=== PATIENT | female | born 1955 | race Caucasian/White ===

== ENCOUNTER 2016-07-21 13:36 | Emergency (ER) | payer OTHER ==
[~2016-07-21] VITALS: Ht 152.4 cm; Wt 90.7 kg
[~2016-07-21 13:36] MED LIST: ATORVASTATIN CA10 MG PO; CITALOPRAM20 MG PO; DELTASONE20 MG PO; FENOFIBRATE MI134 MG PO; LEVOTHYROXINE0.1 MG PO; MEDROL DOSEPAK1 PAC PO; PERCOCET 325 MG1 TA2 PO; TENORETIC PO
--- NOTE | 2016-07-21 15:36 | ED EYE COMPLAINT ---
History of Present Illness General Chief Complaint: Eye Problems Stated Complaint: BILATERAL EYE SWELLING,ITCHINESS,BLISTERS Source: patient Exam Limitations: no limitations Vital Signs & Intake/Output Vital Signs & Intake/Output Vital Signs Date Time Temp Pulse Resp B/P Pulse O2 O2 Flow FiO2 Ox Delivery Rate 07/21 1345 98.3 68 16 132/92 94 Room Air Allergies Coded Allergies: celecoxib (From CELEBREX) (Intermediate, ARM SWELLING 05/20/16) Reconcile Medications Atorvastatin Calcium (Lipitor) 10 MG TAB 1 TAB PO DAILY CHOLESTEROL (Reported ) Cephalexin (Keflex) 500 MG CAPSULE 1 CAP PO TID periorbital cellulitis Citalopram Hydrobromide (Citalopram HBr) 20 MG TAB 1 TAB PO DAILY DEPRESSION (Reported) Fenofibrate, Micronized (Fenofibrate Micronized) 134 MG CAP 1 TAB PO D CHOL ( Reported) Levothyroxine Sodium 0.1 MG TAB 0.1 MG PO DAILY AC THYROID (Reported) Prednisone (Deltasone) 20 MG TABLET 1 TAB PO BID ALLERGIC REACTION Sulfamethoxazole/Trimethoprim (Bactrim Ds Tablet) 800 MG-160 MG TABLET 1 TAB PO BID periorbital cellulitis Tenoretic (Tenoretic 100 Tablet) 1 TAB TAB 1 TAB PO DAILY HTN (Reported) Triage Note: PT STATES SHE IS HAVING SWELLING,REDNESS AND DRAINAGE TO BILAT EYES SINCE TUESDAY. PT STATES THIS HAPPENS TO HER TWO TIMES A YEAR ONCE IN SUMMER AND ONCE IN THE WINTER. Triage Nurses Notes Reviewed? yes HPI: This patient is a 60-year-old female who presented to the emergency department stay for bilateral eye complaint. Patient reported that her symptoms began on Tuesday with itching to her eyes. She reported that her eyes have been feeling swollen and she has, "a funny sensation," underneath her eyes. She reported that similar symptoms do happen to her in the winter. She reported that she has been on prednisone in the past. The patient denied any fevers, chills, visual changes coming ear pain, throat pain, difficulty breathing, tongue swelling or lip swelling, chest pain, or abdominal pain. (GABO SHUKLA,ARTEM) Past History Travel History Traveled to [place] past 21 day No Medical History Any Pertinent Medical History? 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 No (ARTEM AYON PA-C) Review of Systems Review of Systems Constitutional: Reports: no symptoms. Eyes: Reports: see HPI. Ear: Reports: no symptoms. Nose: Reports: no symptoms. Mouth: Reports: no symptoms. Throat: Reports: no symptoms. Respiratory: Reports: no symptoms. Cardiovascular: Reports: no symptoms. GI: Reports: no symptoms. Musculoskeletal: Reports: no symptoms. Skin: Reports: no symptoms. Neurological/Psychological: Reports: no symptoms. All Other Systems: Reviewed and Negative (ARTEM AYON PA-C) Physical Exam General Appearance: well developed/nourished, no apparent distress, alert, awake General Inspection: PERIORBITAL ERYTHEMA AND EDEMA. nO PROPTOSIS. nO DRAINAGE FROM THE EYE. nO CONJUNCTIVAL INJECTION. eomi. perrla. nO EVIDENCE OF FOREIGN BODY General Inspection: POSITIVE PERIORBITAL ERYTHEMA AND EDEMA. nO PROPTOSIS. nO DRAINAGE FROM THE EYE. nO CONJUNCTIVAL INJECTION. perrla. eomi. nO EVIDENCE OF FOREIGN BODY Physical Exam Comments: Well-developed well-nourished person in no acute distress HEENT: Normal EENT exam, head normocephalic, moist mucous membranes No pharyngeal injection. No oropharyngeal edema. No tongue or lip swelling Neck: Supple, no lymphadenopathy Back: Normal gait Cardiovascular: Regular rate and rhythm no murmurs Respiratory: Lungs clear to auscultation bilaterally with no wheezes, rales, or rhonchi Extremity: Normal and equal pulses Neuro: Alert oriented x3, cranial nerves II through XII grossly intact. Skin: No appreciable rash on exposed skin, skin is warm and dry. Psych: Mood and affect is normal (ARTEM AYON PA-C) Progress Differential Diagnosis: corneal abrasion, corneal foreign body, conjunctivitis, detached retina, glaucoma, globe rupture, retinal art./v. occlusion, PERIORBITAL CELLULITIS, ORBITAL CELLULITIS Plan of Care: Orders Procedure Date/time Status BLOOD CULTURE 07/21 1529 Active COMPREHENSIVE METABOLIC PANEL 07/21 1529 Complete CBC WITHOUT DIFFERENTIAL 01/18 1529 Complete Laboratory Tests 07/21/16 1544: Anion Gap 10, Estimated GFR > 60, BUN/Creatinine Ratio 30.0 H, Glucose 116 H, Calcium 10.4 H, Total Bilirubin 0.5, AST 73 H, ALT 93 H, Alkaline Phosphatase 68, Total Protein 7.3, Albumin 4.2, Globulin 3.1, Albumin/Globulin Ratio 1.4, CBC w Diff NO MAN DIFF REQ, RBC 4.09 L, MCV 94.4, MCH 32.0 H, RDW 16.1 H, MPV 8.4, Gran % 55.6, Lymphocytes % 32.4, Monocytes % 7.3, Eosinophils % 4.5, Basophils % 0.2, Absolute Granulocytes 3.1, Absolute Lymphocytes 1.8, Absolute Monocytes 0.4, Absolute Eosinophils 0.2, Absolute Basophils 0, PUBS MCHC 33.8 Microbiology 07/21 1555 BLOOD: Blood Culture - RECD 07/21 154 BLOOD: Blood Culture - RECD Diagnostic Imaging: Viewed by Me: CT Scan. Discussed w/RAD: CT Scan. Radiology Impression: PATIENT: MIKE ACOSTA PRESENT AGE: 60 PATIENT ACCOUNT NO: [id number] : 54 LOCATION: [facility] ORDERING PHYSICIAN: ARTEM AYON PA-C SERVICE DATE: 07/21/16 EXAM TYPE: CAT - CT ORBITS W IV CONTRAST EXAMINATION: CT ORBIT WITH CONTRAST CLINICAL INFORMATION: 60-year-old female with periorbital edema and erythema. Evaluate for orbital cellulitis. COMPARISON: None. TECHNIQUE: Multidetector CT imaging of the orbits was performed with intravenous administration of 95 mL of Optiray 320 nonionic contrast material. Axial images are presented at 1.25 mm and 2.5 mm slice thickness. Coronal and sagittal reformatted images were generated and reviewed. DLP: 179 mGy-cm. FINDINGS: There is mild edema within subcutaneous tissues in the right periorbital area without evidence of post septal extension of inflammation or rim-enhancing abscess. The globes, extraocular muscles, optic nerves and optic canals are normal. The retrobulbar fat planes are well- preserved. The orbital rims and daily, including lamina papyracea, are intact. The visualized paranasal sinuses are well-pneumatized and without air-fluid levels. The nasopharynx and nasal cavity are well aerated. Incidentally noted is right-sided deviation of the nasal septum with a right-sided spur that encroaches on the middle meatus. The visualized mandible, temporomandibular joints, zygomatic arches, nasal bones and pterygoid plates are intact. No acute findings within the examined intracranial compartment. There is mild atherosclerosis of the cavernous carotid arteries. The mastoid air cells and middle ear cavities are clear. IMPRESSION: Mild soft tissue inflammation/ cellulitis in the right periorbital region. No evidence of postseptal extension of inflammation, soft tissue abscess or sinusitis. DICTATED BY: BHARAT HAILE MD DATE/TIME DICTATED:07/21/161646 WRAPPER STEMMER HAND:IVETTE DATE/TIME TRANSCRIBED:07/21/161646 CONFIDENTIAL, DO NOT COPY WITHOUT APPROPRIATE AUTHORIZATION. <Electronically signed in Other Vendor System> SIGNED BY: BHARAT HAILE MD 07/21/161656 Comments: 07/21/2016 5:21:34 PM: Discussed this patient's imaging and laboratory studies. No increased blood cell count. However there is a periorbital right-sided cellulitis seen. The patient is currently denying any pain to her eyes. DR MELISSA that the patient's bedside [id number] evaluation. We'll give this patient and dose of antibiotics here in the emergency department through the IV. She will go home with PO antibiotics and return tomorrow evening for a recheck. The patient is in agreement with the plan. (ARTEM AYON PA-C) Departure Departure Disposition: HOME OR SELF CARE Condition: Stable Clinical Impression Primary Impression: Periorbital cellulitis Qualifiers: Laterality: right Qualified Code: L03.213 - Periorbital cellulitis Referrals: CECILIA COATES APRN (PCP/Family) Additional Instructions: Please take antibiotics as prescribed and for their full duration. Please return to the emergency department tomorrow evening for a reevaluation. Be sure to rest and stay hydrated. Call your primary care physician to schedule a follow-up appointment. Return to the emergency department sooner for any worsening symptoms or concerns. Departure Forms: Customer Survey General Discharge Information Prescriptions: Current Visit Scripts Cephalexin (Keflex) 1 CAP PO TID #30 CAP Sulfamethoxazole/Trimethoprim (Bactrim Ds Tablet) 1 TAB PO BID #20 TAB (ARTEM AYON PA-C) PA/HOSIERY MATER Co-Sign Statement Statement: ED Attending supervision documentation- [] I saw and evaluated the patient. I have also reviewed all the pertinent lab results and diagnostic results. I agree with the findings and the plan of care as documented in the PA's/HOSIERY MATER's documentation. [X] I have reviewed the ED Record and agree with the PA's/HOSIERY MATER's documentation. [] Additions or exceptions (if any) to the PAs/HOSIERY MATER's note and plan are summarized below: [] (SHIN WOMACK,ESTELITA)
[2016-07-21 15:54] LABS: ABSOLUTE BASOPHIL COUNT 0 /CUMM (0.0-0.2); ABSOLUTE EOSINOPHIL COUNT 0.2 /CUMM (0.0-0.7); ABSOLUTE GRANULOCYTE CT 3.1 /CUMM (1.4-6.5); ABSOLUTE LYMPH COUNT 1.8 /CUMM (1.2-3.4); ABSOLUTE MONOCYTE COUNT 0.4 /CUMM (0.10-0.60); BASOPHIL % 0.2 % (0.0-2.0); EOSINOPHIL % 4.5 % (0-5); GRANULOCYTE % 55.6 % (42.2-75.2); HEMATOCRIT 38.6 % (37-47); MEAN CORPUSCULAR HGB CONC 33.8 G/DL (33.0-37.0); MEAN CORPUSCULAR VOLUME 94.4 FL (81.0-99.0); MEAN PLATELET VOLUME 8.4 FL (7.4-10.4); PLATELET COUNT 230 /CUMM (130-400); RBC DISTRIBUTION WIDTH 16.1 % (11.5-14.5); RED BLOOD CELL CT 4.09 /CUMM (4.20-5.40); WHITE BLOOD CELL COUNT 5.5 /CUMM (4.8-10.8)
--- NOTE | 2016-07-21 16:57 | CT SCAN REPORT ---
EXAMINATION: CT ORBIT WITH CONTRAST CLINICAL INFORMATION: 60-year-old female with periorbital edema and erythema. Evaluate for orbital cellulitis. COMPARISON: None. TECHNIQUE: Multidetector CT imaging of the orbits was performed with intravenous administration of 95 mL of Optiray 320 nonionic contrast material. Axial images are presented at 1.25 mm and 2.5 mm slice thickness. Coronal and sagittal reformatted images were generated and reviewed. DLP: 179 mGy-cm. FINDINGS: There is mild edema within subcutaneous tissues in the right periorbital area without evidence of post septal extension of inflammation or rim-enhancing abscess. The globes, extraocular muscles, optic nerves and optic canals are normal. The retrobulbar fat planes are well-preserved. The orbital rims and daily, including lamina papyracea, are intact. The visualized paranasal sinuses are well-pneumatized and without air-fluid levels. The nasopharynx and nasal cavity are well aerated. Incidentally noted is right-sided deviation of the nasal septum with a right-sided spur that encroaches on the middle meatus. The visualized mandible, temporomandibular joints, zygomatic arches, nasal bones and pterygoid plates are intact. No acute findings within the examined intracranial compartment. There is mild atherosclerosis of the cavernous carotid arteries. The mastoid air cells and middle ear cavities are clear. IMPRESSION: Mild soft tissue inflammation/cellulitis in the right periorbital region. No evidence of postseptal extension of inflammation, soft tissue abscess or sinusitis.
[2016-07-21] MEDS ORDERED: BACTRIM DS TAB1 EACH PO (18:03)
[2016-07-21] MEDS ORDERED: KEFLEX500 M1 PO (18:03)
[2016-07-21 18:13] VITALS: BP 130/90
== END 2016-07-21 18:15 ==
LOC: ERH 13:36
PROVIDERS: Physician Assistant
DX: L03.211 Cellulitis of face (principal)
CPT/HCPCS: 87040; 96374; 96375; J0690; J2930

== ENCOUNTER 2016-07-22 17:19 | Emergency (ER) | payer OTHER ==
[~2016-07-22] VITALS: Ht 165.1 cm; Wt 90.7 kg
[~2016-07-22 17:19] MED LIST changes: +BACTRIM DS TAB1 EACH PO; +KEFLEX500 M1 PO
--- NOTE | 2016-07-22 17:47 | ED HEAD/FACIAL INJ COMPLAINT ---
History of Present Illness General Chief Complaint: General Adult Stated Complaint: PT IS HERE FOR A FOLLOW UP Source: patient, old records Exam Limitations: no limitations Vital Signs & Intake/Output Vital Signs & Intake/Output Vital Signs Date Time Temp Pulse Resp B/P Pulse O2 O2 Flow FiO2 Ox Delivery Rate 07/22 1723 95.2 68 18 95 Room Air Allergies Coded Allergies: celecoxib (From CELEBREX) (Intermediate, ARM SWELLING 05/20/16) Reconcile Medications Atorvastatin Calcium (Lipitor) 10 MG TAB 1 TAB PO DAILY CHOLESTEROL (Reported ) Cephalexin (Keflex) 500 MG CAPSULE 1 CAP PO TID periorbital cellulitis Citalopram Hydrobromide (Citalopram HBr) 20 MG TAB 1 TAB PO DAILY DEPRESSION (Reported) Fenofibrate, Micronized (Fenofibrate Micronized) 134 MG CAP 1 TAB PO D CHOL ( Reported) Levothyroxine Sodium 0.1 MG TAB 0.1 MG PO DAILY AC THYROID (Reported) Prednisone (Deltasone) 20 MG TABLET 1 TAB PO BID ALLERGIC REACTION Sulfamethoxazole/Trimethoprim (Bactrim Ds Tablet) 800 MG-160 MG TABLET 1 TAB PO BID periorbital cellulitis Tenoretic (Tenoretic 100 Tablet) 1 TAB TAB 1 TAB PO DAILY HTN (Reported) Triage Note: 60 Y/O FEMALE RETURNS FOR RE CHECK. SHE WAS HERE YESTERDAY AND DIAGNOSED WITH PERIORBITAL CELLULITIS; HAS BEEN TAKING ANTIBIOTICS AND WAS TOLD TO RETURN FOR RE CHECK,. STATES SYMPTOMS ARE IMPROVED. MINIMAL SWELLING NOTED AROUND EYES. AFEBRILE. Triage Nurses Notes Reviewed? yes HPI: 60-year-old female who with complaints of periorbital cellulitis, right side, she was seen here yesterday for same, I reviewed her previous records, she had an elevated white count and a CT scan suggestive of periorbital cellulitis and was placed on Keflex and Bactrim. She has been taking the antibiotics and she feels significantly better. She has no pain, there is mild redness that has remained but overall it is much improved. She has no visual changes no pain with movement of the eyes. No fever no flulike illness. The area is mildly itchy but otherwise patient has no other complaints. (DORIS MONROE) Past History Travel History Traveled to [place] past 21 day No Medical History Any Pertinent Medical History? 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 No (DORIS MONROE) Review of Systems Review of Systems Constitutional: Reports: see HPI. Respiratory: Reports: no symptoms. Cardiovascular: Reports: no symptoms. GI: Reports: no symptoms. Genitourinary: Reports: no symptoms. Musculoskeletal: Reports: no symptoms. Neurological/Psychological: Reports: no symptoms. Hematologic/Endocrine: Reports: no symptoms. Immunologic/Allergic: Reports: no symptoms. All Other Systems: Reviewed and Negative (DORIS MONROE) Physical Exam Physical Exam General Appearance: well developed/nourished, no apparent distress Cranial Nerves: normal hearing, normal speech, PERRL Comments: Well-developed well-nourished no apparent distress. HEENT: Atraumatic, extraocular motion intact, no pain with extraocular motion. Mild redness and swelling without tenderness to the bilateral orbital region right greater than left. No abscess noted, no lymphadenopathy of the head or neck Neck: Supple, no lymphadenopathy Back: Nontender Respiratory: No respiratory distress Extremities: No edema, full range of motion Neuro: Alert and oriented x3 Psych: Mood affect normal, normal memory normal judgment. Skin: Warm and dry, no rash on exposed skin (DORIS MONROE) Progress Differential Diagnosis: corneal abrasion, c-spine injury, facial fracture, globe injury, ICH, orbit fracture, skull fracture Plan of Care: Patient is significantly improved and she feels well and is without complaints. She should continue antibiotics and return with any concerns (DORIS MONROE) Departure Departure Disposition: HOME OR SELF CARE Condition: Stable Clinical Impression Primary Impression: Cellulitis, face Referrals: CECILIA COATES APRN (PCP/Family) Additional Instructions: Return with worsening redness, swelling, pain, visual changes or fever Departure Forms: Customer Survey General Discharge Information (DORIS MONROE) PA/SUPERVISOR SUNGLASSES Co-Sign Statement Statement: ED Attending supervision documentation- [] I saw and evaluated the patient. I have also reviewed all the pertinent lab results and diagnostic results. I agree with the findings and the plan of care as documented in the PA's/SUPERVISOR SUNGLASSES's documentation. [X] I have reviewed the ED Record and agree with the PA's/SUPERVISOR SUNGLASSES's documentation. [] Additions or exceptions (if any) to the PAs/SUPERVISOR SUNGLASSES's note and plan are summarized below: [] (SHIN WOMACK,ESTELITA)
== END 2016-07-22 17:49 ==
LOC: ERH 17:19
DX: L03.211 Cellulitis of face (principal)
CPT/HCPCS: 99281